=== PATIENT | female | born 2000 | race Hispanic/Latino ===

== ENCOUNTER 2023-10-18 15:19 | Emergency (ER) | payer MEDICAID, OTHER ==
[~2023-10-18] VITALS: Ht 154.9 cm; Wt 68.0 kg
[~2023-10-18 15:19] MED LIST: FERR-82 PO
[2023-10-18] MEDS: ACETAMINOPHEN 500 MG TABLET PO ONE (16:33)
[2023-10-18] MEDS: ONDANSETRON ODT 4MG TAB SL ONE (17:02)
[2023-10-18] MEDS ORDERED: IBUP-2070 PO (17:19)
[2023-10-18] MEDS ORDERED: ONDA-243 PO (17:19)
[2023-10-18 17:43] VITALS: BP 126/76; PULSE 72; RESP 17; O2SAT 99
== END 2023-10-18 17:42 | disposition home or self-care (01) ==
LOC: EDH 15:19
DX: S00.83XA Contusion of other part of head, initial encounter (principal); S00.511A Abrasion of lip, initial encounter; Z90.49 Acquired absence of other specified parts of digestive tract; R11.10 Vomiting, unspecified; V89.2XXA Person injured in unspecified motor-vehicle accident, traffic, initial encounter; Y93.I9 Activity, other involving external motion; Y92.488 Other paved roadways as the place of occurrence of the external cause; Y99.8 Other external cause status
CPT/HCPCS: 70486; 81025